=== PATIENT | female | born 1965 | race Hispanic/Latino ===

== ENCOUNTER 2024-09-23 11:25 | Emergency (ER) | payer OTHER ==
[~2024-09-23] VITALS: Ht 152.4 cm; Wt 60.0 kg
[~2024-09-23 11:25] MED LIST: PERCOCET 10/31 COMBO PO
[2024-09-23 11:31] VITALS: BP 139/90
[2024-09-23 11:48] LABS: BASO% 0.3 % (0-3); EOS% 2.1 % (0-8); HEMATOCRIT 41.1 % (37.0-47.0); HEMOGLOBIN 13.6 g/dl (12.0-16.0); LYMPH% 42.6 % (15-41); MEAN CELL VOLUME 94.3 fL CALC (80.0-100.0); MEAN CORPUSCULAR HGB 31.2 pG CALC (26.0-32.0); MEAN CORPUSCULAR HGB CONC 33.1 g/dL CAL (32.0-36.0); MONO% 5.4 % (2-13); NEUT# 4.27 thou/uL (2.00-7.15); NEUT% 49.6 % (42-76); RED BLOOD COUNT 4.36 mill/uL (4.20-5.60); RED CELL DISTRI WIDTH 12.6 % (11.5-15.5)
[2024-09-23 12:00] VITALS: BP 143/100
[2024-09-23 12:08] LABS: ALBUMIN 4.3 g/dL (3.2-5.0); BILIRUBIN, TOTAL 0.8 mg/dL (0.02-1.3); CREATININE 0.5 mg/dL (0.5-1.0); POTASSIUM 4.3 mmol/l (3.5-5.1)
[2024-09-23] MEDS ORDERED: FLEXERIL5 M1 PO (12:22)
[2024-09-23] MEDS ORDERED: NAPROXEN500 MG PO (12:22)
[2024-09-23] MEDS ORDERED: GABAPENTIN300 M3 PO (12:22)
[2024-09-23 12:30] VITALS: BP 135/93
[2024-09-23] MEDS ORDERED: KETOROLAC TROMETHAMINE 30 MG/ML SDV IM ONE (12:35)
== END 2024-09-23 12:44 | disposition home or self-care (01) ==
LOC: ED 11:25
PROVIDERS: Family Medicine
DX: M79.632 Pain in left forearm (principal); M79.631 Pain in right forearm; M79.642 Pain in left hand; M79.641 Pain in right hand; M25.532 Pain in left wrist; M25.531 Pain in right wrist; J44.9 Chronic obstructive pulmonary disease, unspecified; E11.9 Type 2 diabetes mellitus without complications